=== PATIENT | female | born 1995 | race African-American/Black ===

== ENCOUNTER 2017-05-12 14:43 | Emergency (ER) | payer OTHER ==
[2017-05-12 14:56] VITALS: BP 98/62; PULSE 80; BMI 20.7
[2017-05-12] MEDS ORDERED: TETANUS AND DIPHTHERIA TOXOID 0.5 ML DISP.SYRIN IM ONE (15:32)
--- NOTE | 2017-05-12 15:35 | PDOC ---
History of Present Illness - General Chief Complaint: Bone Injury Stated Complaint: FINGER LACERATION History Source: Patient Exam Limitations: No Limitations - History of Present Illness Initial Comments: 05/12/17 15:35 This 21-year-old female presents to the emergency room with a laceration to the volar aspect of her right hand pointer finger PIP joint it is approximately 1 inch in length and is wide but bleeding is somewhat controlled. This laceration occurred at one of her [employer] machines just prior to coming in. 05/12/17 15:40 Past History - Past Medical History Allergies/Adverse Reactions: Allergies Allergy/AdvReac Type Severity Reaction Status Date / Time No Known Allergies Allergy Verified 05/12/17 14:55 Home Medications: Ambulatory Orders NK [No Known Home Medication] 05/12/17 COPD: No - Suicide/Smoking/Psychosocial Hx Smoking History: Never smoked Review of Systems - Review of Systems Able to Perform ROS?: Yes Comments:: 05/12/17 15:37 General statement: Hematology: neg history of bleeding/blood thinners Skin: Neg for lesions, rash, bruising. laceration to the right hand HEENT: Neg symptoms Respiratory: Neg SOB or difficulty in breathing Cardiac: Neg chest pain GI: Neg pain, n/v : Neg problems on voiding MS: Neg for joint pain/stiffness, no edema Neuro: Neg for LOC, weakness, Endocrine: Neg for excess thirst/hunger, cold/heat intolerance, excess sweating Allergies: Neg for allergies *Physical Exam - Vital Signs Last Vital Signs Temp Pulse Resp BP Pulse Ox 80 18 98/62 99 05/12/17 14:50 05/12/17 14:50 05/12/17 14:50 05/12/17 14:50 - Physical Exam Comments: 05/12/17 15:40 General Appearance: This well appearing 21-year-old female V/S: hemodynamically stable, afebrile Skin: WNL of pt's skin color, no signs of pallor, mottling, cyanosis Head:symmetrical Eyes: EOM's intact, PERRLA Ears: denies pain Nose: patent Throat: lips, teeth, gums, tongue, buccal mucos pink and moist Lungs: Chest symmetry equal. Cap refill <3 seconds. Lung sounds clear Cardiac: PMI at R 4MCL space, pos S1 and S2, regular rate. Abdomen: Soft, round, nontender : Not observed Muscularskeletal: Gait steady, ambulated in to ER, no edema +PMS Neuro: AAOx3, cognitively intact, speech clear and appropriate. 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 She has received tetanus today. She has received 6 #5/[address] *DC/Admit/Observation/Transfer Diagnosis at time of Disposition: Laceration - Discharge Dispostion Disposition: HOME Condition at time of disposition: Good Admit: No - Referrals - Patient Instructions Printed Discharge Instructions: DI for Suture Removal Additional Instructions: Discharge instructions 1. Please follow up with your primary physician within the next few days and explain that you have been seen here in the Emergency Room. 2. If you experience any worsening of symptoms which is signs of infection, please return to the ER 3. Rest your left hand and leave the splint on and place for the next 2 days. Keep an eye on the laceration to make sure that it does not get infected. In a couple of days you can leave it open to air with bacitracin and a Band-Aid during the day and at night you can leave it open to air. You can take a shower and The area dry and then redress it. A Tylenol or Motrin for pain. You may use ice. You have received a tetanus shot today - Post Discharge Activity Forms/Work/School Notes: Back to Work
== END 2017-05-12 15:43 | disposition home or self-care (01) ==
LOC: JERFT 14:43
PROC: 3E0234Z Introduction of Serum, Toxoid and Vaccine into Muscle, Percutaneous Approach (ICD-10-PCS; principal; 2017-05-12)
PROC: 0HQFXZZ Repair Right Hand Skin, External Approach (ICD-10-PCS; 2017-05-12)
PROC: 2W3JX1Z Immobilization of Right Finger using Splint (ICD-10-PCS; 2017-05-12)
DX: S61.210A Laceration without foreign body of right index finger without damage to nail, initial encounter (principal); W22.09XA Striking against other stationary object, initial encounter; Y93.89 Activity, other specified; Y92.59 Other trade areas as the place of occurrence of the external cause; Y99.0 Civilian activity done for income or pay
CPT/HCPCS: 99281-25

== ENCOUNTER 2017-05-19 12:23 | Emergency (ER) | payer OTHER ==
[2017-05-19 12:40] VITALS: BP 109/62; PULSE 76; TEMP 98.6; BMI 41.8
--- NOTE | 2017-05-19 13:19 | PDOC ---
Suture Removal/Wound Check HPI - History of Present Illness Chief Complaint: Suture/Staple Removal(Here) Stated Complaint: SUTURE REMOVAL Time Seen by Provider: 05/19/17 12:58 History Source: Yes: Patient Exam Limitations: Yes: No Limitations [facility]ated at[facility] Date of Last ED visit: 05/12/17 - Previous ED Treatment Type of procedure performed on last visit: Yes: Laceration Repair Tetanus Immunization: Yes: Up to Date Past History - Past Medical History Allergies/Adverse Reactions: Allergies Allergy/AdvReac Type Severity Reaction Status Date / Time No Known Allergies Allergy Verified 05/19/17 12:36 Home Medications: Ambulatory Orders NK [No Known Home Medication] 05/12/17 COPD: No - Immunization History Immunization Up to Date: Yes - Suicide/Smoking/Psychosocial Hx Smoking History: Never smoked Suture Removal/Wound Check PE - Physical Exam Laceration/Wound Check Symptoms: reports: None Current Severity Level: None Maximum Severity Level: None Pain Localization: None Pain Radiation: None *Review of Systems - Review of Systems Constitutional: No: Symptoms Reported Musculoskeletal: No: Symptoms Reported Integumentary: No: Symptoms Reported Hematologic/Lymphatic: No: Symptoms Reported All Other Systems: Reviewed and Negative Medical Decision Making - Medical Decision Making 05/19/17 13:17 Patient here for sutures removal to the right second finger, 6 sutures removed without difficulty Steri-Strips placed on for stability due to high tension area. We'll discharge patient home, to follow-up with plastics as needed. Sutures removed with no erythema edema or secondary signs of infection *DC/Admit/Observation/Transfer Diagnosis at time of Disposition: Visit for suture removal - Discharge Dispostion Disposition: HOME Condition at time of disposition: Good Admit: No - Referrals - Patient Instructions Additional Instructions: Please keep area clean and dry for the next 48 hours please the Steri-Strips on until they fall off on their own. - Post Discharge Activity Forms/Work/School Notes: Back to Work
== END 2017-05-19 13:44 | disposition home or self-care (01) ==
LOC: JERFT 12:23
DX: Z48.02 Encounter for removal of sutures (principal)
CPT/HCPCS: 99281-25

== ENCOUNTER 2020-11-22 11:26 | Emergency (ER) | payer BC, OTHER ==
[2020-11-22 11:38] VITALS: BP 109/73; PULSE 69; TEMP 97.2; BMI 19.8
[2020-11-22 13:09] LABS: URINE APPEARANCE CLEAR; URINE BILIRUBIN NEGATIVE (NEGATIVE); URINE COLOR YELLOW; URINE GLUCOSE (UA) NEGATIVE (NEGATIVE); URINE KETONE 3+ (NEGATIVE); URINE LEUK ESTERASE NEGATIVE (NEGATIVE); URINE NITRITE NEGATIVE (NEGATIVE); URINE PROTEIN NEGATIVE (NEGATIVE)
[2020-11-22 13:18] LABS: HCG,QUALITATIVE URINE Positive
== END 2020-11-22 15:27 | disposition home or self-care (01) ==
LOC: JER 11:26
DX: O26.891 Other specified pregnancy related conditions, first trimester (principal); R10.9 Unspecified abdominal pain; Z3A.01 Less than 8 weeks gestation of pregnancy
CPT/HCPCS: 36415; 76817-TC; 81003; 84702; 84703; 87070; 87077; 87086; 87205; 87252; 87491; 87591; 99284-25

== ENCOUNTER 2021-07-14 22:15 | Inpatient (IN) | payer BC ==
[2021-07-14 22:53] VITALS: BMI 29.6
[2021-07-14] MEDS ORDERED: OXYTOCIN 20 UNITS in 0.9% NS 20 UNIT/1,000 ML INFUS.BAG IV ONE ×2 (23:13→23:40)
[2021-07-14] MEDS ORDERED: LIDOCAINE HCL 1% PRESERVATIVE FREE - 30ML VIAL ONE (23:14)
[2021-07-14 23:21] LABS: BASO % 0.2 % (0-2.0); EOS % 0.1 % (0-4.5); HEMOGLOBIN 8.7 GM/dL (10.7-15.3); LYMPH % 14.7 % (8-40); MCH 29.7 pg (25.7-33.7); MCHC 33.4 g/dl (32.0-36.0); MEAN CELL VOLUME 88.9 fl (80-96); MEAN PLT VOLUME 7.3 fl (7.5-11.1); MONO % 6.8 % (3.8-10.2); NEUT % 78.2 % (42.8-82.8); PLATELET COUNT 423 10^3/uL (134-434); RBC 2.92 M/mm3 (3.60-5.2); RDW 14.2 % (11.6-15.6); WHITE BLOOD COUNT 16.8 K/mm3 (4.0-10.0)
[2021-07-14 23:30] LABS: INR 0.97 (0.83-1.09); PROTHROMBIN TIME (PATIENT) 11.2 SEC (9.7-13.0)
[2021-07-14 23:33] LABS: ACTIVATED PTT 29.1 SECONDS (25.2-36.5)
[2021-07-14 23:50] LABS: CALCIUM 8.3 mg/dL (8.5-10.1)
[2021-07-14 23:51] LABS: BLOOD UREA NITROGEN 6.6 mg/dL (7-18)
[2021-07-14 23:54] LABS: CREATININE 0.6 mg/dL (0.55-1.3)
[2021-07-15] MEDS ORDERED: IBUPROFEN 600 MG TABLET (FP) PO ONE ×2 (00:10)
[2021-07-15 00:22] LABS: CORD HCO3 17.9 mmHg (20-29); CORD PCO2 38.4 mmHg (30-78); CORD pH 7.286 (7.14-7.44)
[2021-07-15 00:23] LABS: CORD BASE EXCESS -6.5 mmol/L (0-2); CORD HCO3 19.4 mmHg (20-29); CORD PCO2 40.2 mmHg (30-78); CORD pH 7.302 (7.14-7.44)
[2021-07-15] MEDS ORDERED: ELECTROLYTE-148 SOLN 1,000 ML IV SCH (00:30)
[2021-07-15 01:30] LABS: HIV INTERPRETATION NEGATIVE (NEGATIVE)
[2021-07-15 10:41] LABS: BASO % 0.2 % (0-2.0); EOS % 0.1 % (0-4.5); HEMATOCRIT 22.6 % (32.4-45.2); HEMOGLOBIN 7.5 GM/dL (10.7-15.3); MCH 29.9 pg (25.7-33.7); MCHC 33.2 g/dl (32.0-36.0); MEAN CELL VOLUME 90.1 fl (80-96); MEAN PLT VOLUME 7.5 fl (7.5-11.1); MONO % 7.6 % (3.8-10.2); NEUT % 80.1 % (42.8-82.8); PLATELET COUNT 351 10^3/uL (134-434); RBC 2.51 M/mm3 (3.60-5.2); WHITE BLOOD COUNT 16.1 K/mm3 (4.0-10.0)
[2021-07-15] MEDS: IBUPROFEN 600 MG TABLET (FP) PO PRN ×2 (11:46→21:18)
[2021-07-15] MEDS: FERROUS SO4 325 MG TABLET (FP) PO SCH (17:53)
[2021-07-16 07:51] LABS: BASO % 0.3 % (0-2.0); EOS % 0.8 % (0-4.5); HEMOGLOBIN 7.3 GM/dL (10.7-15.3); LYMPH % 16.3 % (8-40); MCH 29.7 pg (25.7-33.7); MCHC 33.3 g/dl (32.0-36.0); MEAN CELL VOLUME 89.3 fl (80-96); MEAN PLT VOLUME 7.2 fl (7.5-11.1); MONO % 8.1 % (3.8-10.2); NEUT % 74.5 % (42.8-82.8); PLATELET COUNT 351 10^3/uL (134-434); RBC 2.46 M/mm3 (3.60-5.2); RDW 14.3 % (11.6-15.6); WHITE BLOOD COUNT 14.7 K/mm3 (4.0-10.0)
[2021-07-16] MEDS: FERROUS SO4 325 MG TABLET (FP) PO SCH (09:05)
[2021-07-16 10:12] VITALS: TEMP 98.3
[2021-07-16] MEDS ORDERED: PRENATAL VITAMINS W/ FOLIC ACID TABLET (FP) PO SCH (10:30)
[2021-07-16 14:13] VITALS: BP 121/78; PULSE 109
== END 2021-07-16 14:50 | disposition home or self-care (01) | DRG 807 ==
LOC: JLDR 22:15 → J3W 07-15 01:51
PROVIDERS: ADMIT Obstetrics & Gynecology; ATTEND Obstetrics & Gynecology
PROC: 0KQM0ZZ Repair Perineum Muscle, Open Approach (ICD-10-PCS; principal; 2021-07-14)
PROC: 10E0XZZ Delivery of Products of Conception, External Approach (ICD-10-PCS; 2021-07-14)
DX: O99.02 Anemia complicating childbirth (principal); Z37.0 Single live birth; D64.9 Anemia, unspecified; O70.1 Second degree perineal laceration during delivery; Z3A.39 39 weeks gestation of pregnancy
CPT/HCPCS: 36415; 36600; 59409; 80048; 82803; 85025; 85610; 85730; 86762; 86780; 86850; 86900; 86901; 87340; 87389; C9803-CS; U0003; U0005